=== PATIENT | male | born 1955 | race African-American/Black ===

== ENCOUNTER 2021-10-20 17:23 | Emergency (ER) | payer OTHER ==
[~2021-10-20] VITALS: Ht 170.2 cm; Wt 68.0 kg
[2021-10-20 18:01] LABS: PLATELET COUNT 728 K/uL (142-355)
[2021-10-20 18:15] LABS: POTASSIUM 4.2 mmol/L (3.6-5.2)
[2021-10-20 19:21] VITALS: BP 140/91; TEMP 98.4
[2021-10-21] MEDS ORDERED: ASPIRIN/ENTERIC81 MG PO (08:16)
[2021-10-21] MEDS ORDERED: CLOP75TA2 PO (08:17)
[2021-10-21] MEDS ORDERED: CYCL10TA35 PO (08:18)
[2021-10-21] MEDS ORDERED: PEPCID40 MG PO (08:19)
[2021-10-21] MEDS ORDERED: GABA100C2 PO (08:19)
[2021-10-21] MEDS ORDERED: LACT12LO EX (08:22)
[2021-10-21] MEDS ORDERED: LITHIUM CARB150 MG PO (08:23)
[2021-10-21] MEDS ORDERED: MIRTAZAPINE7.5 MG PO (08:24)
[2021-10-21] MEDS ORDERED: MYLANTA MAXIMUM1 SUS PO (08:25)
[2021-10-21] MEDS ORDERED: PANTOPRAZOLE 40MG TA PO (08:26)
[2021-10-21] MEDS ORDERED: HYDR5TAB9 PO (08:26)
[2021-10-21] MEDS ORDERED: CARAFATE1 GM PO (08:28)
== END 2021-10-20 19:49 | disposition still patient (30) ==
LOC: ED 17:46
PROVIDERS: Emergency Medicine
DX: F43.10 Post-traumatic stress disorder, unspecified (principal); F32.89 Other specified depressive episodes; R45.851 Suicidal ideations; D64.89 Other specified anemias; Z11.52 Encounter for screening for COVID-19; Z04.6 Encounter for general psychiatric examination, requested by authority; X58.XXXA Exposure to other specified factors, initial encounter; Y92.89 Other specified places as the place of occurrence of the external cause
CPT/HCPCS: 80053; 81000; 85027; 87635; 93005; 99283; U0003